=== PATIENT | female | born 1970 | race Caucasian/White ===

== ENCOUNTER 2022-08-08 12:56 | Emergency (ER) | payer MEDICAID, OTHER ==
[~2022-08-08] VITALS: Ht 160 cm; Wt 83.9 kg
--- NOTE | 2022-08-08 13:11 | NUR ---
seen and examined by
[2022-08-08] MEDS ORDERED: TDAP DIPH,PERTUSS,TET VAC/PF 0.5 ML DISP.SYRIN IM ONE ×2 (13:15→13:20)
--- NOTE | 2022-08-08 13:21 | NUR ---
gave meds as ordered
[2022-08-08] MEDS ORDERED: DOXY100C5 PO (13:32)
[2022-08-08 13:33] VITALS: BP 112/80
--- NOTE | 2022-08-08 13:33 | NUR ---
Patient discharged to home in stable condition. Written and verbal after care instructions given. Patient verbalizes understanding of instructions. Stressed follow up or return to ER for worsening s/s.
== END 2022-08-08 13:37 | disposition home or self-care (01) ==
LOC: EDBD 12:56 → ER 12:56
DX: L03.113 Cellulitis of right upper limb (principal); E03.9 Hypothyroidism, unspecified
CPT/HCPCS: 90715; A4663